=== PATIENT | female | born 1990 | race Caucasian/White ===

== ENCOUNTER 2017-04-21 13:27 | Emergency (ER) | payer OTHER ==
[~2017-04-21] VITALS: Ht 154.9 cm; Wt 87.1 kg
[2017-04-21 13:35] VITALS: TEMP 37.1; Ht 154.9 cm; Wt 87.1 kg
[2017-04-21] MEDS ORDERED: KETOROLAC TROMETHAMINE 15 MG/ML VIAL IV STA (14:10)
[2017-04-21] MEDS ORDERED: SERT50TA PO (14:14)
[2017-04-21] MEDS ORDERED: QUET1TAB34 PO (14:14)
[2017-04-21 14:51] LABS: BASO % 0.2 %; BASO ABS # 0.02 K/uL (0-0.2); EOS % 0.6 %; EOS ABS # 0.05 K/uL (0-0.5); HEMATOCRIT 40.3 % (37-47); HEMOGLOBIN 13.5 g/dL (12.0-16.0); IG# 0.02 K/uL (0.00-0.02); LYMPH % 17.4 %; LYMPH ABS # 1.53 K/uL (1.2-3.4); MEAN CELL VOLUME 88.2 fL (80-100); MEAN CORPUSCULAR HEMOGLOBIN 29.5 pg (25-34); MEAN CORPUSCULAR HGB CONC 33.5 g/dl (32-36); MEAN PLATELET VOLUME 9.7 fL (7.4-10.4); MONO ABS # 0.61 K/uL (0.11-0.59); NEUT % 74.6 %; NEUT ABS # 6.54 K/uL (1.4-6.5); PLATELET COUNT 273 K/uL (130-400); RED CELL DISTRIBUTION WIDTH CV 13.5 % (11.5-14.5); RED CELL DISTRIBUTION WIDTH SD 43.7 fL (36.4-46.3); WHITE BLOOD COUNT 8.77 K/uL (4.8-10.8)
[2017-04-21 15:01] LABS: PTT PATIENT 26.2 SECONDS (21.0-31.0)
[2017-04-21 15:10] LABS: ALBUMIN 3.6 gm/dl (3.4-5.0); CALCIUM 8.5 mg/dl (8.5-10.1); CREATININE 0.85 mg/dl (0.60-1.20); POTASSIUM 3.8 mmol/L (3.5-5.1)
[2017-04-21 15:13] LABS: TOTAL PROTEIN 7.5 gm/dl (6.4-8.2)
--- NOTE | 2017-04-21 16:00 | DIAGNOSTIC IMAGING REPORT ---
ULTRASOUND OF THE PELVIS CLINICAL HISTORY: Pelvic pain. Vaginal bleeding. COMPARISON STUDY: No priors. TECHNIQUE: Real-time, grayscale, and color flow sonography of the pelvis is performed both transabdominally and endovaginally. Images are reviewed in the transverse and longitudinal planes. FINDINGS: Uterus: The uterus is normal in size and echotexture, measuring 7.1 x 3.3 x 4.6 cm. Small Nabothian cysts are noted in the cervix. Endometrium: The endometrium is normal in appearance, and the endometrial stripe is normal in thickness measuring up to 0.7 cm. Ovaries: The ovaries are normal in size and morphology. The right ovary measures 3.4 x 1.2 x 1.8 cm and the left ovary measures 2.7 x 1.4 x 1.9 cm. Small ovarian follicles are incidentally noted. Normal Doppler waveforms are shown within both ovaries. Pelvis: There is no free fluid in the cul-de-sac. No concerning adnexal lesion is seen. IMPRESSION: Unremarkable sonographic assessment of the pelvis. Electronically signed by: Esteban Lemus M.D. 04/21/2017 3:59 PM Dictated Date/Time: 04/21/2017 3:58 PM
[2017-04-21] MEDS ORDERED: FLUCONAZOLE 50 MG TAB PO ONE (17:30)
--- NOTE | 2017-04-21 17:33 | EMERGENCY ROOM VISIT NOTE ---
History First contact with patient: 13:40 Chief Complaint: ED VAG BLEEDING Stated Complaint: PELVIC AND BLEEDING History of Present Illness The patient is a 27 year old female who presents to the Emergency Room with complaints of pelvic pain and vaginal bleeding. The patient reports that for the past 1.5-2 months, she has had bleeding and pelvic/vaginal pain with any sexual activity. She states it is usually a small amount of bleeding and occurs directly after sexual activity. The pain is in her pelvis and vagina. Her last menstrual period was one month ago. She states that her menstrual periods are normal and she denies any previous pregnancies or history of [facility] issues. She states the pain has been intermittent but became more severe today. She rates the discomfort a 7/10. She has been taking ibuprofen without relief. She denies any nausea/vomiting, urinary symptoms or changes in bowel movements. She denies any abnormal vaginal discharge. She is sexually active with a female partner and denies any chance of STI. Review of Systems A complete 10 point review of systems was reviewed with the patient with pertinent positives and negatives as per history of present illness. All else were negative. Social History Smoking Status: Never Smoker Alcohol Use: occasionally Marital Status: single Housing Status: lives alone Current/Historical Medications Scheduled Quetiapine Fumarate (Seroquel), 150 MG PO HS Sertraline (Zoloft), 25 MG PO HS Physical Exam Vital Signs Date Time Temp Pulse Resp B/P (MAP) Pulse Ox O2 Delivery O2 Flow Rate FiO2 04/21/17 17:45 78 18 123/76 97 04/21/17 15:28 79 18 127/74 98 Room Air 04/21/17 13:35 37.1 94 17 138/84 99 Room Air Physical Exam VITALS: Vitals are noted on the nurse's note and reviewed by myself. Vital signs stable. GENERAL: This is a 27-year-old female, in no acute distress, nondiaphoretic, well-developed well-nourished. SKIN: The skin was without rashes. HEART: Regular rate and rhythm without murmurs gallops or rubs. LUNGS: Clear to auscultation bilaterally without wheezes, rales or rhonchi. ABDOMEN: Positive bowel sounds x 4. Soft, nontender to palpation. PELVIC: External genitalia unremarkable. There is a moderate amount of white discharge within the vaginal vault. No evidence of cervicitis. No cervical motion tenderness. NEURO: Patient was alert and oriented to person place and time. Medical Decision & Procedures ER Provider Diagnostic Interpretation: ULTRASOUND OF THE PELVIS CLINICAL HISTORY: Pelvic pain. Vaginal bleeding. COMPARISON STUDY: No priors. TECHNIQUE: Real-time, grayscale, and color flow sonography of the pelvis is performed both transabdominally and endovaginally. Images are reviewed in the transverse and longitudinal planes. FINDINGS: Uterus: The uterus is normal in size and echotexture, measuring 7.1 x 3.3 x 4.6 cm. Small Nabothian cysts are noted in the cervix. Endometrium: The endometrium is normal in appearance, and the endometrial stripe is normal in thickness measuring up to 0.7 cm. Ovaries: The ovaries are normal in size and morphology. The right ovary measures 3.4 x 1.2 x 1.8 cm and the left ovary measures 2.7 x 1.4 x 1.9 cm. Small ovarian follicles are incidentally noted. Normal Doppler waveforms are shown within both ovaries. Pelvis: There is no free fluid in the cul-de-sac. No concerning adnexal lesion is seen. IMPRESSION: Unremarkable sonographic assessment of the pelvis. Laboratory Results 04/21/17 14:40 Red Blood Count 4.57, Mean Corpuscular Volume 88.2, Mean Corpuscular Hemoglobin 29.5, Mean Corpuscular Hemoglobin Concent 33.5, Mean Platelet Volume 9.7, Neutrophils (%) (Auto) 74.6, Lymphocytes (%) (Auto) 17.4, Monocytes (%) (Auto) 7.0, Eosinophils (%) (Auto) 0.6, Basophils (%) (Auto) 0.2, Neutrophils # (Auto) 6.54, Lymphocytes # (Auto) 1.53, Monocytes # (Auto) 0.61, Eosinophils # (Auto) 0.05, Basophils # (Auto) 0.02 04/21/17 14:40 Test 04/21/17 14:30 04/21/17 14:40 Urine Color YELLOW Urine Appearance CLEAR (CLEAR) Urine pH 6.5 (4.5-7.5) Urine Specific [place] 1.025 (1.000-1.030) Urine Protein NEG (NEG) Urine Glucose (UA) NEG (NEG) Urine Ketones NEG (NEG) Urine Occult Blood NEG (NEG) Urine Nitrite NEG (NEG) Urine Bilirubin NEG (NEG) Urine Urobilinogen NEG (NEG) Urine Leukocyte Esterase TRACE (NEG) Urine WBC (Auto) 1-5 /hpf (0-5) Urine RBC (Auto) 0-4 /hpf (0-4) Urine Hyaline Casts (Auto) 1-5 /lpf (0-5) Urine Epithelial Cells (Auto) >30 /lpf (0-5) Urine Bacteria (Auto) 2+ (NEG) Urine Test NEG (NEG) White Blood Count 8.77 K/uL (4.8-10.8) Red Blood Count 4.57 M/uL (4.2-5.4) Hemoglobin 13.5 g/dL (12.0-16.0) Hematocrit 40.3 % (37-47) Mean Corpuscular Volume 88.2 fL (80-100) Mean Corpuscular Hemoglobin 29.5 pg (25-34) Mean Corpuscular Hemoglobin Concent 33.5 g/dl (32-36) Platelet Count 273 K/uL (130-400) Mean Platelet Volume 9.7 fL (7.4-10.4) Neutrophils (%) (Auto) 74.6 % Lymphocytes (%) (Auto) 17.4 % Monocytes (%) (Auto) 7.0 % Eosinophils (%) (Auto) 0.6 % Basophils (%) (Auto) 0.2 % Neutrophils # (Auto) 6.54 K/uL (1.4-6.5) Lymphocytes # (Auto) 1.53 K/uL (1.2-3.4) Monocytes # (Auto) 0.61 K/uL (0.11-0.59) Eosinophils # (Auto) 0.05 K/uL (0-0.5) Basophils # (Auto) 0.02 K/uL (0-0.2) RDW Standard Deviation 43.7 fL (36.4-46.3) RDW Coefficient of Variation 13.5 % (11.5-14.5) Immature Granulocyte % (Auto) 0.2 % Immature Granulocyte # (Auto) 0.02 K/uL (0.00-0.02) Prothrombin Time 10.6 SECONDS (9.0-12.0) Prothromb Time International Ratio 1.0 (0.9-1.1) Activated Partial Thromboplast Time 26.2 SECONDS (21.0-31.0) Partial Thromboplastin Ratio 1.0 Anion Gap 5.0 mmol/L (3-11) Est Creatinine Clear Calc Drug Dose 97.9 ml/min Estimated GFR () 107.3 Estimated GFR (Non- 92.6 BUN/Creatinine Ratio 13.1 (10-20) Calcium Level 8.5 mg/dl (8.5-10.1) Total Bilirubin 0.3 mg/dl (0.2-1) Aspartate Amino Transf (AST/SGOT) 20 U/L (15-37) Alanine Aminotransferase (ALT/SGPT) 42 U/L (12-78) Alkaline Phosphatase 79 U/L (45-117) Total Protein 7.5 gm/dl (6.4-8.2) Albumin 3.6 gm/dl (3.4-5.0) Globulin 3.9 gm/dl (2.5-4.0) Albumin/Globulin Ratio 0.9 (0.9-2) Medications Administered Medications (Trade) Dose Ordered Sig/Elle Route Start Time Stop Time Status Last Admin Dose Admin Ketorolac Tromethamine (Toradol Inj) 15 mg NOW STAT IV 04/21/17 14:10 04/21/17 14:12 DC 04/21/17 15:09 15 MG Fluconazole (Diflucan Tab) 150 mg NOW ONCE PO 04/21/17 17:30 04/21/17 17:31 DC 04/21/17 17:30 150 MG Medical Decision Differential diagnosis includes PID, endometriosis, ovarian cyst, ovarian torsion, ectopic , , irregular menses, among others. The patient is a 27-year-old female who presents today complaining of pelvic/ vaginal pain and occasional bleeding. Labs revealed no leukocytosis, anemia or concerning elect avoid abnormalities. Urinalysis was suggestive of contamination rather than infection and will be sent for culture. Urine was negative. Pelvic ultrasound was completed and was unremarkable. Patient has had ongoing pain and bleeding with sexual activity. I did perform a pelvic exam which did show some white discharge within the vagina possibly consistent with candidiasis. Patient was treated with a dose of Diflucan and culture was sent. The patient will need follow-up with [facility] for further evaluation and testing. She was given information for local [facility] but encouraged to contact her insurance company. Conservative measures were discussed. Based on the patient's presentation and work up, I feel the patient is stable for outpatient treatment. The patient was educated to return to the emergency department for any worsening of their current condition or new/concerning symptoms. She will follow up with [facility]. Medication Reconcilliation Current Medication List: was personally reviewed by me Blood Pressure Screening Patient's blood pressure: Normal blood pressure Impression Primary Impression: Pelvic pain Departure Information Dispostion Home / Self-Care Condition GOOD Referrals No Doctor, Assigned (PCP) Tapan Whipple M.D. Patient Instructions My [facility] Additional Instructions You will need to follow-up with [facility]. You may take Naproxen as needed for pain. Return to the emergency department for any worsening or new/concerning symptoms.
[2017-04-21 17:45] VITALS: BP 123/76; PULSE 78; O2SAT 97
== END 2017-04-21 17:45 | disposition home or self-care (01) ==
LOC: C.EDB 13:29 → C.EDC 17:45
DX: R10.2 Pelvic and perineal pain (principal)